=== PATIENT | female | born 1975 ===

== ENCOUNTER 2020-05-15 07:00 | Inpatient (IN) | payer OTHER ==
[~2020-05-15] VITALS: Ht 167.6 cm; Wt 65.8 kg
[2020-05-23] MEDS ORDERED: Tylenol #3 PO (08:44)
== END 2020-05-23 10:39 | disposition home or self-care (01) | DRG 743 ==
LOC: OB/GYN 05-22 05:10 → O/R 05-22 05:10 → SURH 05-22 07:00 → OB/GYN 05-22 11:05
PROVIDERS: ADMIT Obstetrics & Gynecology; ATTEND Obstetrics & Gynecology
PROC: 0UQF7ZZ Repair Cul-de-sac, Via Natural or Artificial Opening (ICD-10-PCS; 2020-05-22)
PROC: 0USG7ZZ Reposition Vagina, Via Natural or Artificial Opening (ICD-10-PCS; 2020-05-22)
PROC: 0TJB8ZZ Inspection of Bladder, Via Natural or Artificial Opening Endoscopic (ICD-10-PCS; 2020-05-22)
PROC: 0UT97ZZ Resection of Uterus, Via Natural or Artificial Opening (ICD-10-PCS; principal; 2020-05-22 08:45)
DX: N72 Inflammatory disease of cervix uteri (principal); N88.8 Other specified noninflammatory disorders of cervix uteri; D25.1 Intramural leiomyoma of uterus; D25.0 Submucous leiomyoma of uterus; N81.11 Cystocele, midline; N94.5 Secondary dysmenorrhea; N92.5 Other specified irregular menstruation